=== PATIENT | female | born 1940 | race Caucasian/White ===

== ENCOUNTER 2018-07-20 17:11 | Emergency (ER) | payer OTHER ==
[~2018-07-20] VITALS: Ht 175.3 cm; Wt 72.8 kg
[~2018-07-20 17:11] MED LIST: CITA20TA9 PO; MAGN400O7 PO; OXYC1TAB7 PO; SENN1TAB8 PO
[2018-07-20 17:36] VITALS: BP 154/77
[2018-07-20] MEDS ORDERED: HYDROcodone/APAP 5/325 TABLET ONE (17:59)
[2018-07-20] MEDS ORDERED: HYDR12.53 PO (18:04)
[2018-07-20] MEDS ORDERED: METO25TA35 PO (18:04)
[2018-07-20] MEDS ORDERED: HYDROcodone/APAP 5/325 TABLET PO ONE (19:00)
== END 2018-07-20 19:19 | disposition home or self-care (01) ==
LOC: ED 19:01
DX: M70.842 Other soft tissue disorders related to use, overuse and pressure, left hand (principal); I10 Essential (primary) hypertension; F17.200 Nicotine dependence, unspecified, uncomplicated; Y93.89 Activity, other specified
CPT/HCPCS: 29260; 99284